=== PATIENT | female | born 1950 | race Caucasian/White ===

== ENCOUNTER 2025-01-18 09:51 | Outpatient (RCR) | payer MEDICARE, SELFPAY | END 2025-01-30 13:19 | disposition home or self-care (01) | LOC: HO.PT 09:51 | PROVIDERS: PCP Nurse Practitioner Family; Visit Provider Orthopaedic Surgery | DX: M75.122 Complete rotator cuff tear or rupture of left shoulder, not specified as traumatic (principal); Z98.890 Other specified postprocedural states | CPT/HCPCS: 97110; 97140; 97162; 97530 ==